=== PATIENT | female | born 1970 | race Caucasian/White ===

== ENCOUNTER 2019-08-27 12:27 | Inpatient (IN) | payer OTHER, MEDICAID ==
[~2019-08-27] VITALS: Ht 160 cm; Wt 64.9 kg
[2019-08-27] MEDS ORDERED: SODIUM CHLORIDE 0.9% 1,000 ML IV ONE (13:19)
[2019-08-27] MEDS ORDERED: MORPHINE SULFATE 4 MG/ML CPJ (NOT FOR IM USE) IV STA (13:19)
[2019-08-27] MEDS ORDERED: ONDANSETRON HCL 4MG/2ML INJ IV STA (13:19)
[2019-08-27] MEDS ORDERED: TETANUS, DIPHTHERIA, PERTUSSIS VAC/PF 0.5ML (>7YR OLD) IM ONE (13:30)
[2019-08-27] MEDS ORDERED: BACITRACIN ZINC OINT UDPKT TOP ONE (13:30)
[2019-08-27] MEDS ORDERED: LIDOCAINE HCL/PF 1% 10 MG/ML 5ML VIAL IJ ONE (13:30)
[2019-08-27] MEDS ORDERED: CEFAZOLIN 1000MG PREMIX 50 ML IV ONE (13:30)
[2019-08-27] MEDS ORDERED: ETOMIDATE 2MG/ML 10ML VIAL IV ONE (13:30)
[2019-08-27] MEDS ORDERED: LIDOCAINE 1%/EPI 1:100,000 10 ML VIAL IJ ONE (13:30)
[2019-08-27] MEDS ORDERED: MORPHINE SULFATE 4 MG/ML CPJ (NOT FOR IM USE) IV ONE ×2 (13:30→19:45)
[2019-08-27 13:41] LABS: BASOPHILS % 0.4 % (0.0-2.0); EOSINOPHILS % 1.2 % (0.0-5.0); HEMATOCRIT. 29.1 % (36.0-48.0); HEMOGLOBIN. 9.1 g/dL (12.0-16.0); LYMPHOCYTES % 16.6 % (20.0-50.0); MEAN CORPUSCULAR HEMOGLOBIN 20.7 pg (28.0-32.0); MEAN CORPUSCULAR VOLUME 66.4 fL (81.0-99.0); MEAN PLATELET VOLUME 10.4 fl (7.4-10.4); MONOCYTES % 5.1 % (2.0-8.0); NEUTROPHILS % 76.7 % (40.0-76.0); PLATELET 221 x1000/uL (130-400); RED BLOOD CELL COUNT 4.38 mill/uL (4.2-5.4); RED CELL DISTRIBUTION WIDTH 18.9 % (11.6-14.6)
[2019-08-27 13:47] LABS: CHLORIDE 106 mEq/L (98-107)
[2019-08-27 13:48] LABS: INR 1.1; PARTIAL THROMBOPLASTIN TIME 22.7 sec (23.4-31.0); PROTHROMBIN TIME 11.2 sec (9.6-11.0)
[2019-08-27 14:04] LABS: PLATELET ESTIMATE NORMAL
[2019-08-27] MEDS ORDERED: BACITRACIN 15GM TUBE TOP NR (15:15)
[2019-08-27] MEDS ORDERED: GENTAMICIN 80MG PREMIX 100 ML IV ONE (15:30)
[2019-08-27] MEDS ORDERED: LORAZEPAM 2MG/ML CPJ ONE (15:50)
[2019-08-28] MEDS ORDERED: MORPHINE SULFATE 4 MG/ML CPJ (NOT FOR IM USE) IV ONE
[2019-08-28] MEDS ORDERED: ONDANSETRON HCL 4MG/2ML INJ IV STA (04:16)
[2019-08-28] MEDS ORDERED: CEFAZOLIN 1000MG PREMIX 50 ML IV ONE ×2 (04:30→15:15)
[2019-08-28] MEDS ORDERED: FENTANYL CITRATE/PF 50MCG/ML 2ML VIAL IV ONE (04:30)
[2019-08-28] MEDS ORDERED: ACETAMINOPHEN 325MG TABLET PO ONE (12:15)
[2019-08-28] MEDS ORDERED: GENTAMICIN 80MG PREMIX 100 ML IV ONE (15:15)
[2019-08-28 18:07] LABS: HCG SCREEN NEGATIVE
[2019-08-28] MEDS ORDERED: VANCOMYCIN HCL 1 GM/VIAL ONE ×3 (18:57→23:16)
[2019-08-28] MEDS ORDERED: BACITRACIN 50,000 UNITS/VIAL ONE ×2 (18:58→23:51)
[2019-08-28] MEDS ORDERED: ONDANSETRON HCL 4MG/2ML INJ IV PRN (19:15)
[2019-08-28] MEDS: MORPHINE SULFATE 2 MG/ML CPJ (NOT FOR IM USE) IV PRN (19:59)
[2019-08-28 20:00] VITALS: BP_SYST 111; BP_SYST 129; BP_DIAS 64; BP_DIAS 70
[2019-08-28] MEDS ORDERED: CEFTRIAXONE 1 G PREMIX 50 ML IV SCH (20:30)
[2019-08-28] MEDS ORDERED: ACETAMINOPHEN 650MG SUPP PR PRN (21:15)
[2019-08-28] MEDS ORDERED: IPRATROPIUM/ALBUTEROL 0.5-3(2.5)MG/3ML NEB HHN PRN (21:15)
[2019-08-28] MEDS ORDERED: MAGNESIUM/ALUMINUM HYDROXIDE/SIMETHICONE 30ML UDC PO PRN (21:15)
[2019-08-28] MEDS ORDERED: ACETAMINOPHEN 325MG TABLET PO PRN (21:15)
[2019-08-28] MEDS ORDERED: DOCUSATE SODIUM 100MG CAPSULE PO PRN (21:15)
[2019-08-28] MEDS ORDERED: HYDROCODONE/ACETAMINOPHEN 5/325MG TABLET PO PRN (21:15)
[2019-08-28] MEDS ORDERED: ACETAMINOPHEN 650MG/20.3ML UDC GT PRN (21:15)
[2019-08-28] MEDS ORDERED: CLONIDINE 0.1MG TABLET PO PRN (21:15)
[2019-08-28] MEDS ORDERED: GUAIFENESIN 200MG/10ML SUGAR FREE UDC PO PRN (21:15)
[2019-08-28 21:44] LABS: BASOPHILS % 0.3 % (0.0-2.0); EOSINOPHILS % 0.5 % (0.0-5.0); HEMATOCRIT. 28.9 % (36.0-48.0); HEMOGLOBIN. 9.4 g/dL (12.0-16.0); LYMPHOCYTES % 17.3 % (20.0-50.0); MEAN CORPUSCULAR HEMOGLOBIN 21.4 pg (28.0-32.0); MEAN CORPUSCULAR VOLUME 65.6 fL (81.0-99.0); MEAN PLATELET VOLUME 11.2 fl (7.4-10.4); MONOCYTES % 6.7 % (2.0-8.0); NEUTROPHILS % 75.2 % (40.0-76.0); PLATELET 239 x1000/uL (130-400); RED BLOOD CELL COUNT 4.41 mill/uL (4.2-5.4); RED CELL DISTRIBUTION WIDTH 19.4 % (11.6-14.6)
[2019-08-28] MEDS ORDERED: SODIUM CHLORIDE 0.9% INJ 3ML FLUSH IVF SCH (22:00)
[2019-08-28] MEDS ORDERED: ENOXAPARIN 40MG/0.4ML SYR SUBCUT SCH (22:00)
[2019-08-28 22:02] LABS: CHLORIDE 105 mEq/L (98-107)
[2019-08-28] MEDS: DEXT 5%/0.9% NACL 1,000 ML IV SCH (22:07)
[2019-08-28] MEDS ORDERED: BUPIVACAINE/EPINEPH/PF 0.25%/0.0005 10ML ONE (23:21)
[2019-08-29] MEDS ORDERED: HYDROMORPHONE HCL/PF 2MG/ML CPJ IV PRN (00:30)
[2019-08-29] MEDS ORDERED: MEPERIDINE HCL/PF 25MG/ML CPJ IV PRN (00:30)
[2019-08-29] MEDS ORDERED: ONDANSETRON HCL 4MG/2ML INJ IV PRN (00:30)
[2019-08-29] MEDS ORDERED: LABETALOL 5MG/ML SYR 20 MG/4 ML SYRINGE IV PRN (00:30)
[2019-08-29 02:55] VITALS: BP 104/64
[2019-08-29 04:00] VITALS: BP 129/64
[2019-08-29] MEDS: CEFAZOLIN 1000MG PREMIX 50 ML IV SCH ×2 (05:28→17:59)
[2019-08-29] MEDS ORDERED: CEFAZOLIN SODIUM 1000MG/VIAL IV SCH (06:00)
[2019-08-29] MEDS: METRONIDAZOLE 500 MG PREMIX 100 ML IV SCH ×4 (06:20→22:22)
[2019-08-29 07:22] LABS: CHLORIDE 106 mEq/L (98-107)
[2019-08-29 07:25] LABS: BASOPHILS % 0.2 % (0.0-2.0); EOSINOPHILS % 0.1 % (0.0-5.0); HEMATOCRIT. 26.7 % (36.0-48.0); HEMOGLOBIN. 8.5 g/dL (12.0-16.0); LYMPHOCYTES % 10.5 % (20.0-50.0); MEAN CORPUSCULAR HEMOGLOBIN 21.1 pg (28.0-32.0); MEAN CORPUSCULAR VOLUME 65.9 fL (81.0-99.0); NEUTROPHILS % 86.2 % (40.0-76.0); PLATELET 216 x1000/uL (130-400); RED BLOOD CELL COUNT 4.05 mill/uL (4.2-5.4); RED CELL DISTRIBUTION WIDTH 18.9 % (11.6-14.6)
[2019-08-29 07:39] LABS: LDL CHOLESTEROL 63 mg/dL (5-100)
[2019-08-29 07:41] LABS: HDL CHOLESTEROL 47 mg/dL (40-59)
[2019-08-29 08:00] VITALS: BP 133/68
[2019-08-29] MEDS: MORPHINE SULFATE 2 MG/ML CPJ (NOT FOR IM USE) IV PRN (08:33)
[2019-08-29] MEDS: ONDANSETRON HCL 4MG/2ML INJ IV PRN ×2 (08:33→10:44)
[2019-08-29] MEDS: DEXT 5%/0.9% NACL 1,000 ML IV SCH (08:37)
[2019-08-29] MEDS: HYDROCODONE/ACETAMINOPHEN 10/325MG TABLET PO PRN ×2 (11:08→22:22)
[2019-08-29 12:00] VITALS: BP 119/68
[2019-08-29 16:00] VITALS: BP 115/60
[2019-08-29 20:00] VITALS: BP 127/75
[2019-08-30] VITALS: BP 100/64
[2019-08-30 04:00] VITALS: BP 123/75
[2019-08-30] MEDS: CEFAZOLIN 1000MG PREMIX 50 ML IV SCH ×2 (04:01→12:45)
[2019-08-30] MEDS: HYDROCODONE/ACETAMINOPHEN 10/325MG TABLET PO PRN ×2 (04:29→11:26)
[2019-08-30] MEDS: METRONIDAZOLE 500 MG PREMIX 100 ML IV SCH ×2 (05:59→14:17)
[2019-08-30 08:00] VITALS: BP 120/73
[2019-08-30 10:35] LABS: BASOPHILS % 0.4 % (0.0-2.0); EOSINOPHILS % 0.8 % (0.0-5.0); HEMATOCRIT. 26.3 % (36.0-48.0); HEMOGLOBIN. 8.5 g/dL (12.0-16.0); LYMPHOCYTES % 14.7 % (20.0-50.0); MEAN CORPUSCULAR HEMOGLOBIN 21.3 pg (28.0-32.0); MEAN PLATELET VOLUME 10.1 fl (7.4-10.4); MONOCYTES % 7.4 % (2.0-8.0); NEUTROPHILS % 76.7 % (40.0-76.0); PLATELET 216 x1000/uL (130-400); RED BLOOD CELL COUNT 3.99 mill/uL (4.2-5.4); RED CELL DISTRIBUTION WIDTH 18.9 % (11.6-14.6)
[2019-08-30 10:45] LABS: CHLORIDE 103 mEq/L (98-107)
[2019-08-30 12:00] VITALS: BP 121/77
[2019-08-30 16:00] VITALS: BP 97/59
[2019-08-30 17:06] VITALS: BP 97/59
== END 2019-08-30 17:33 | disposition home or self-care (01) | DRG 313 ==
LOC: ER 12:27 → 6EST 08-28 16:50 → ENRESERV 08-28 18:00
PROVIDERS: ADMIT Family Medicine; ATTEND Family Medicine
PROC: 0HQMXZZ Repair Right Foot Skin, External Approach (ICD-10-PCS; 2019-08-28)
PROC: 0SSFXZZ Reposition Right Ankle Joint, External Approach (ICD-10-PCS; 2019-08-28)
PROC: 0QSJ04Z Reposition Right Fibula with Internal Fixation Device, Open Approach (ICD-10-PCS; principal; 2019-08-29)
PROC: 0QSG04Z Reposition Right Tibia with Internal Fixation Device, Open Approach (ICD-10-PCS; 2019-08-29)
DX: S82.871B Displaced pilon fracture of right tibia, initial encounter for open fracture type I or II (principal); S82.401B Unspecified fracture of shaft of right fibula, initial encounter for open fracture type I or II; M19.90 Unspecified osteoarthritis, unspecified site; W18.39XA Other fall on same level, initial encounter; Y93.89 Activity, other specified; Y92.89 Other specified places as the place of occurrence of the external cause; Y99.8 Other external cause status
CPT/HCPCS: 36415; 71045; 73590; 73600; 73620; 73700; 80061; 81025; 84703; 86850; 86870; 86900; 90471; 90715; 93005; 96365; 96366; 96367; 96368; 96375; 96376; 97116; 97162; 99291; C1713; J0171; J0690; J0696; J1580; J2060; J2270; J2405; J3010; J3370; J3490; J7030; J7042